=== PATIENT | male | born 1980 | race Two or more races ===

== ENCOUNTER 2016-06-14 12:18 | Day surgery (SDC) | payer BC, MEDICAID, OTHER ==
[~2016-06-14] VITALS: Ht 180.3 cm; Wt 76.0 kg
[~2016-06-14 12:18] MED LIST: BUPIVACAINE/PF-EPI 0.5% 1:200K ONE
[2016-06-14 12:45] VITALS: BP 125/81
[2016-06-14] MEDS ORDERED: ACET-1600 PO (12:52)
[2016-06-14] MEDS ORDERED: ETAN50PE IM (12:52)
[2016-06-14] MEDS ORDERED: LIDOCAINE 1%, 2ML ONE (12:56)
[2016-06-14] MEDS ORDERED: LACTATED RINGERS 1,000 ML IV SCH ×2 (13:01→14:14)
[2016-06-14] MEDS ORDERED: FENTANYL PF 100 MCG/2ML ONE ×2 (13:23→13:24)
[2016-06-14] MEDS ORDERED: MIDAZOLAM 1 MG/ML, 2ML ONE ×2 (13:23)
[2016-06-14] MEDS ORDERED: LIDOCAINE 1%, 2ML SQ PRN (13:30)
[2016-06-14] MEDS ORDERED: CEFAZOLIN 1,000 MG ONE (13:31)
[2016-06-14] MEDS ORDERED: PROPOFOL 10 MG/ML, 20ML ONE (13:31)
[2016-06-14] MEDS ORDERED: ONDANSETRON 2MG/ML, 2ML ONE (13:31)
[2016-06-14] MEDS ORDERED: DEXAMETHASONE 4 MG/ML, 1ML ONE (13:31)
[2016-06-14] MEDS ORDERED: KETOROLAC 30 MG/1 ML ONE (13:31)
[2016-06-14] MEDS ORDERED: PROMETHAZINE 25 MG/ML, 1ML IV PRN (14:30)
[2016-06-14] MEDS ORDERED: ALBUTEROL SULFATE 2.5 MG/3 ML NPPB PRN (14:30)
[2016-06-14] MEDS ORDERED: FENTANYL PF 100 MCG/2ML IV PRN (14:30)
[2016-06-14] MEDS ORDERED: ACETAMINOPHEN 325 MG TABLET PO PRN (14:30)
[2016-06-14] MEDS ORDERED: HYDROmorphone 1 MG/ML, 1ML IV PRN (14:30)
[2016-06-14] MEDS ORDERED: hydrALAzine 20 MG/ML, 1ML IV PRN (14:30)
[2016-06-14] MEDS ORDERED: PROMETHAZINE 25 MG/ML, 1ML IM PRN (14:30)
[2016-06-14] MEDS ORDERED: morphine SULFATE 10 MG/ML, 1ML IVPush PRN (14:30)
[2016-06-14] MEDS ORDERED: METOPROLOL 1 MG/ML, 5ML IV PRN (14:30)
[2016-06-14] MEDS ORDERED: ONDANSETRON 2MG/ML, 2ML IVPush PRN (14:30)
[2016-06-14] MEDS ORDERED: MEPERIDINE/PF 25MG/0.5ML IVPush PRN (14:30)
[2016-06-14] MEDS ORDERED: OXYcodone 5 MG/5 ML ORAL.SOL UDC PO PRN (14:30)
[2016-06-14] MEDS ORDERED: ACETAMINOPHEN 325 MG TABLET ONE (14:50)
[2016-06-14] MEDS ORDERED: OXYcodone 5 MG/5 ML ORAL.SOL UDC ONE (14:50)
[2016-06-14] MEDS ORDERED: ACETAMINOPHEN 650 MG/20.3 ML UDC ONE (14:50)
== END 2016-06-14 16:25 | disposition home or self-care (01) ==
LOC: OUT 12:18
PROVIDERS: ATTEND Surgery
DX: K42.9 Umbilical hernia without obstruction or gangrene (principal); M06.9 Rheumatoid arthritis, unspecified; Z83.3 Family history of diabetes mellitus; Z80.3 Family history of malignant neoplasm of breast; Z72.89 Other problems related to lifestyle
CPT/HCPCS: 49585; C1781; J0690; J1100; J1885; J2250; J2405; J2704; J3010